=== PATIENT | female | born 1930 | race Caucasian/White ===

== ENCOUNTER 2017-03-24 10:06 | Inpatient (IN) | payer OTHER ==
[~2017-03-24] VITALS: Ht 160 cm; Wt 55.4 kg
[~2017-03-24 10:06] MED LIST: ASPI-496 PO; ATEN50TA41 PO; CHOL100011 PO; DONE5TAB7 PO; HALO1TAB PO; LOVA20TA2 PO; MV-M1TAB35 PO; POLY17PO5 PO; SULF1TAB24 PO; TRIA1CAP3 PO
[2017-03-24] MEDS ORDERED: PLEASE ENTER HEIGHT AND WEIGHT MC SCH (10:30)
[2017-03-24] MEDS ORDERED: ALBUTEROL/IPRATROPIUM 2.5MG/0.5MG, 3 ML NEB ONE (10:30)
[2017-03-24] MEDS ORDERED: SODIUM CHLORIDE 0.9% 1,000ML IVBOLUS ONE ×2 (10:30→14:00)
[2017-03-24 11:38] LABS: HEMATOCRIT 39.2 % (34.6-47.8); HEMOGLOBIN 13.4 g/dL (11.7-16.4); WHITE BLOOD COUNT 30.5 x10^3/uL (3.4-10)
[2017-03-24 11:40] LABS: DIFF TOTAL CELLS COUNTED 100 CELL DIFF
[2017-03-24 11:56] LABS: ASPARTATE AMINO TRANSFERASE 25 U/L (15-37); BLOOD UREA NITROGEN 11 mg/dL (7-18)
[2017-03-24 12:26] LABS: VERIFY COUNTS? YES
[2017-03-24] MEDS ORDERED: SODIUM CHLORIDE 0.9% 1,000 ML IV ONE (12:32)
[2017-03-24] MEDS ORDERED: CEFTRIAXONE PMX 1GM/50ML 50 ML ONE (12:37)
[2017-03-24] MEDS ORDERED: CEFTRIAXONE PMX 1GM/50ML 50 ML IV ONE (13:00)
[2017-03-24 13:55] VITALS: BP 133/72
[2017-03-24 14:45] VITALS: BP 138/74
[2017-03-24] MEDS ORDERED: ENALAPRILAT 1.25 MG/ML, 2ML IVPush PRN (15:30)
[2017-03-24] MEDS ORDERED: morphine SULFATE 10 MG/ML, 1ML IVPush PRN (15:30)
[2017-03-24] MEDS ORDERED: BISACODYL 10 MG SUPP PR PRN (15:30)
[2017-03-24] MEDS ORDERED: OXYcodone IR 5MG TABLET PO PRN (15:30)
[2017-03-24] MEDS ORDERED: ONDANSETRON 2MG/ML, 2ML IVPush PRN (15:30)
[2017-03-24] MEDS ORDERED: VANCOMYCIN PER PHARMACY MC PRN (15:30)
[2017-03-24] MEDS ORDERED: ACETAMINOPHEN 325 MG TABLET PO PRN (15:30)
[2017-03-24] MEDS ORDERED: POLYETHYLENE GLYCOL 17 GM PACKET PO PRN (15:30)
[2017-03-24] MEDS ORDERED: hydrALAzine 20 MG/ML, 1ML IVPush PRN (15:30)
[2017-03-24] MEDS ORDERED: PIPERACILLIN/TAZO/PMX 3.375GM 50 ML IV SCH (16:00)
[2017-03-24] MEDS ORDERED: VANCOMYCIN PMX 1GM/200ML 200 ML IV SCH ×2 (16:00→17:00)
[2017-03-24] MEDS ORDERED: PHARMACOKINETIC MONITORING MC PRN (16:00)
[2017-03-24] MEDS ORDERED: PHARMACOKINETIC CONSULTATION MC ONE (16:00)
[2017-03-24] MEDS: PIPERACILLIN/TAZO/PMX 3.375GM 50 ML IV SCH ×2 (16:42→22:40)
[2017-03-24] MEDS: HEPARIN 5,000 UNITS/ML, 1ML SQ SCH (16:47)
[2017-03-24] MEDS: D5%-0.9% NACL+KCL 20MEQ 1,000 ML IV SCH (17:22)
[2017-03-24 17:27] VITALS: BP 139/74
[2017-03-24] MEDS: TRIAMTERENE-HCTZ 37.5/25 MG TABLET PO SCH (17:58)
[2017-03-24 19:12] VITALS: BP 137/79
[2017-03-24] MEDS: LOVASTATIN 20 MG TABLET PO SCH (21:00)
[2017-03-25] MEDS: HEPARIN 5,000 UNITS/ML, 1ML SQ SCH ×3 (00:47→17:25)
[2017-03-25] MEDS: D5%-0.9% NACL+KCL 20MEQ 1,000 ML IV SCH ×2 (00:47→09:19)
[2017-03-25 01:20] VITALS: BP 155/67
[2017-03-25] MEDS: PIPERACILLIN/TAZO/PMX 3.375GM 50 ML IV SCH ×4 (04:17→22:27)
[2017-03-25 05:15] LABS: HEMATOCRIT 35.4 % (34.6-47.8); HEMOGLOBIN 12.3 g/dL (11.7-16.4); WHITE BLOOD COUNT 19.2 x10^3/uL (3.4-10)
[2017-03-25] MEDS: TRIAMTERENE-HCTZ 37.5/25 MG TABLET PO SCH ×2 (05:22→17:25)
[2017-03-25 05:23] LABS: BLOOD UREA NITROGEN 8 mg/dL (7-18)
[2017-03-25 05:28] LABS: ASPARTATE AMINO TRANSFERASE 27 U/L (15-37)
[2017-03-25 05:41] LABS: DIFF TOTAL CELLS COUNTED 100 CELL DIFF
[2017-03-25 05:42] LABS: VERIFY COUNTS? YES
[2017-03-25 06:55] VITALS: BP 145/70
[2017-03-25] MEDS: DONEPEZIL 5 MG TABLET PO SCH (09:00)
[2017-03-25] MEDS: ATENOLOL 50 MG TABLET PO SCH (09:00)
[2017-03-25] MEDS: POLYETHYLENE GLYCOL 17 GM PACKET PO SCH (09:00)
[2017-03-25] MEDS: ASPIRIN 81 MG TABLET EC PO SCH (09:00)
[2017-03-25] MEDS: SENNA/DOCUSATE TABLET PO SCH (09:23)
[2017-03-25] MEDS: CHOLECALCIFEROL 1,000 UNIT TABLET PO SCH (09:23)
[2017-03-25] MEDS ORDERED: POTASSIUM CHLORIDE 40 MEQ in SODIUM CHLORIDE 0.9% 500 ML IV ONE (09:30)
[2017-03-25] MEDS ORDERED: OMNIPAQUE 350 MG/ML, 100ML BOTTLE ONE (11:50)
[2017-03-25 13:45] VITALS: BP 100/63
[2017-03-25 13:50] VITALS: BP 109/66
[2017-03-25] MEDS: VANCOMYCIN PMX 1GM/200ML 200 ML IV SCH (17:25)
[2017-03-25 20:10] VITALS: BP 139/69
[2017-03-25] MEDS: LOVASTATIN 20 MG TABLET PO SCH (21:00)
[2017-03-26 01:02] VITALS: BP 136/75
[2017-03-26] MEDS: HEPARIN 5,000 UNITS/ML, 1ML SQ SCH ×3 (02:44→16:27)
[2017-03-26] MEDS: PIPERACILLIN/TAZO/PMX 3.375GM 50 ML IV SCH ×4 (04:15→22:01)
[2017-03-26 06:05] LABS: HEMATOCRIT 32.1 % (34.6-47.8); HEMOGLOBIN 11.1 g/dL (11.7-16.4); WHITE BLOOD COUNT 17.2 x10^3/uL (3.4-10)
[2017-03-26] MEDS: TRIAMTERENE-HCTZ 37.5/25 MG TABLET PO SCH ×2 (06:32→17:37)
[2017-03-26 06:41] LABS: BLOOD UREA NITROGEN 7 mg/dL (7-18)
[2017-03-26 07:45] VITALS: BP 133/69
[2017-03-26] MEDS: DONEPEZIL 5 MG TABLET PO SCH (09:00)
[2017-03-26] MEDS: SENNA/DOCUSATE TABLET PO SCH (09:00)
[2017-03-26] MEDS: CHOLECALCIFEROL 1,000 UNIT TABLET PO SCH (09:00)
[2017-03-26] MEDS: ATENOLOL 50 MG TABLET PO SCH (09:00)
[2017-03-26] MEDS: ASPIRIN 81 MG TABLET EC PO SCH (09:00)
[2017-03-26] MEDS: POLYETHYLENE GLYCOL 17 GM PACKET PO SCH (09:00)
[2017-03-26] MEDS ORDERED: MAGNESIUM SULFATE PMX 2GM/50ML 50 ML IV ONE (13:00)
[2017-03-26] MEDS: GUAIFENESIN 200 MG TABLET PO SCH ×2 (13:00→21:00)
[2017-03-26] MEDS ORDERED: POTASSIUM CHLORIDE 40 MEQ in SODIUM CHLORIDE 0.9% 500 ML IV ONE (13:00)
[2017-03-26 14:00] VITALS: BP 128/64
[2017-03-26 19:32] VITALS: BP 152/79
[2017-03-26] MEDS: LOVASTATIN 20 MG TABLET PO SCH (21:00)
[2017-03-27 02:03] VITALS: BP 135/78
[2017-03-27] MEDS: HEPARIN 5,000 UNITS/ML, 1ML SQ SCH ×3 (02:04→16:10)
[2017-03-27] MEDS: PIPERACILLIN/TAZO/PMX 3.375GM 50 ML IV SCH ×4 (04:20→22:03)
[2017-03-27] MEDS: VANCOMYCIN PMX 1GM/200ML 200 ML IV SCH (05:20)
[2017-03-27] MEDS: TRIAMTERENE-HCTZ 37.5/25 MG TABLET PO SCH ×2 (05:38→17:01)
[2017-03-27 05:42] LABS: HEMATOCRIT 30.9 % (34.6-47.8); HEMOGLOBIN 10.5 g/dL (11.7-16.4); WHITE BLOOD COUNT 10.1 x10^3/uL (3.4-10)
[2017-03-27 05:51] LABS: BLOOD UREA NITROGEN 13 mg/dL (7-18)
[2017-03-27] MEDS: CHOLECALCIFEROL 1,000 UNIT TABLET PO SCH (09:00)
[2017-03-27] MEDS: ATENOLOL 50 MG TABLET PO SCH (09:00)
[2017-03-27] MEDS: DONEPEZIL 5 MG TABLET PO SCH (09:32)
[2017-03-27] MEDS: SENNA/DOCUSATE TABLET PO SCH (09:33)
[2017-03-27] MEDS: POLYETHYLENE GLYCOL 17 GM PACKET PO SCH (09:33)
[2017-03-27] MEDS: GUAIFENESIN 200 MG TABLET PO SCH ×2 (09:33→20:40)
[2017-03-27] MEDS: ASPIRIN 81 MG TABLET EC PO SCH (09:33)
[2017-03-27] MEDS ORDERED: VANCOMYCIN PMX 1GM/200ML 200 ML IV SCH ×2 (11:30→13:00)
[2017-03-27 12:20] VITALS: BP 149/65
[2017-03-27 20:13] VITALS: BP 144/76
[2017-03-27] MEDS: LOVASTATIN 20 MG TABLET PO SCH (20:40)
[2017-03-28 00:24] VITALS: BP 133/77
[2017-03-28] MEDS: HEPARIN 5,000 UNITS/ML, 1ML SQ SCH ×3 (01:00→16:11)
[2017-03-28] MEDS: PIPERACILLIN/TAZO/PMX 3.375GM 50 ML IV SCH ×4 (03:37→22:39)
[2017-03-28] MEDS: TRIAMTERENE-HCTZ 37.5/25 MG TABLET PO SCH ×2 (06:00→18:04)
[2017-03-28 08:00] VITALS: BP 153/91
[2017-03-28] MEDS: ATENOLOL 50 MG TABLET PO SCH (09:00)
[2017-03-28] MEDS: VANCOMYCIN PMX 1GM/200ML 200 ML IV SCH (09:00)
[2017-03-28] MEDS: POLYETHYLENE GLYCOL 17 GM PACKET PO SCH (09:00)
[2017-03-28] MEDS: CHOLECALCIFEROL 1,000 UNIT TABLET PO SCH (09:00)
[2017-03-28] MEDS: GUAIFENESIN 200 MG TABLET PO SCH ×2 (09:00→21:00)
[2017-03-28] MEDS: SENNA/DOCUSATE TABLET PO SCH (09:00)
[2017-03-28] MEDS: ASPIRIN 81 MG TABLET EC PO SCH (09:00)
[2017-03-28] MEDS: DONEPEZIL 5 MG TABLET PO SCH (09:00)
[2017-03-28 12:00] VITALS: BP 161/83
[2017-03-28 19:16] VITALS: BP 158/68
[2017-03-28] MEDS: LOVASTATIN 20 MG TABLET PO SCH (21:00)
[2017-03-29] MEDS: HEPARIN 5,000 UNITS/ML, 1ML SQ SCH ×3 (01:20→16:45)
[2017-03-29 04:10] VITALS: BP 159/76
[2017-03-29] MEDS: PIPERACILLIN/TAZO/PMX 3.375GM 50 ML IV SCH ×4 (04:35→22:53)
[2017-03-29 05:33] LABS: HEMATOCRIT 36.9 % (34.6-47.8); HEMOGLOBIN 12.6 g/dL (11.7-16.4); WHITE BLOOD COUNT 9.5 x10^3/uL (3.4-10)
[2017-03-29] MEDS: TRIAMTERENE-HCTZ 37.5/25 MG TABLET PO SCH (06:00)
[2017-03-29 06:22] LABS: BLOOD UREA NITROGEN 9 mg/dL (7-18)
[2017-03-29 07:00] VITALS: BP 154/70
[2017-03-29] MEDS ORDERED: POTASSIUM CHLORIDE 40 MEQ in SODIUM CHLORIDE 0.9% 500 ML IV ONE (07:00)
[2017-03-29] MEDS: DONEPEZIL 5 MG TABLET PO SCH (07:56)
[2017-03-29] MEDS: ASPIRIN 81 MG TABLET EC PO SCH (07:57)
[2017-03-29] MEDS: ATENOLOL 50 MG TABLET PO SCH (07:57)
[2017-03-29] MEDS: GUAIFENESIN 200 MG TABLET PO SCH ×2 (07:57→20:31)
[2017-03-29] MEDS: CHOLECALCIFEROL 1,000 UNIT TABLET PO SCH (07:57)
[2017-03-29] MEDS: SENNA/DOCUSATE TABLET PO SCH (07:57)
[2017-03-29] MEDS: POLYETHYLENE GLYCOL 17 GM PACKET PO SCH (07:57)
[2017-03-29] MEDS: VANCOMYCIN PMX 1GM/200ML 200 ML IV SCH (09:10)
[2017-03-29] MEDS ORDERED: MAGNESIUM SULFATE PMX 2GM/50ML 50 ML IV ONE (10:30)
[2017-03-29] MEDS: MAGNESIUM CHLORIDE 64 MG TABLET.DR PO SCH ×2 (10:54→20:50)
[2017-03-29] MEDS: D5%-0.45NACL+KCL 40MEQ 1,000 ML IV SCH (10:58)
[2017-03-29 13:29] VITALS: BP 147/77
[2017-03-29] MEDS: CARVEDILOL 6.25 MG TABLET PO SCH (16:57)
[2017-03-29 19:09] VITALS: BP 146/71
[2017-03-29] MEDS: LOVASTATIN 20 MG TABLET PO SCH (20:31)
[2017-03-29] MEDS: MIRTAZAPINE 15 MG TABLET PO SCH (20:31)
[2017-03-29] MEDS: LOSARTAN 25MG TABLET PO SCH (20:33)
[2017-03-30] MEDS: D5%-0.45NACL+KCL 40MEQ 1,000 ML IV SCH ×2 (00:16→11:40)
[2017-03-30] MEDS: HEPARIN 5,000 UNITS/ML, 1ML SQ SCH ×3 (01:53→17:45)
[2017-03-30 02:59] VITALS: BP 135/76
[2017-03-30] MEDS: PIPERACILLIN/TAZO/PMX 3.375GM 50 ML IV SCH ×3 (04:45→17:47)
[2017-03-30 05:29] LABS: BLOOD UREA NITROGEN 10 mg/dL (7-18)
[2017-03-30] MEDS: CARVEDILOL 6.25 MG TABLET PO SCH ×2 (06:00→17:44)
[2017-03-30] MEDS: POLYETHYLENE GLYCOL 17 GM PACKET PO SCH (10:24)
[2017-03-30] MEDS: ASPIRIN 81 MG TABLET EC PO SCH (10:24)
[2017-03-30] MEDS: SENNA/DOCUSATE TABLET PO SCH (10:24)
[2017-03-30] MEDS: MAGNESIUM CHLORIDE 64 MG TABLET.DR PO SCH ×2 (10:25→22:09)
[2017-03-30] MEDS: CHOLECALCIFEROL 1,000 UNIT TABLET PO SCH (10:25)
[2017-03-30] MEDS: LOSARTAN 25MG TABLET PO SCH ×2 (10:30→21:55)
[2017-03-30] MEDS: GUAIFENESIN 200 MG TABLET PO SCH ×2 (10:30→21:55)
[2017-03-30] MEDS: VANCOMYCIN PMX 1GM/200ML 200 ML IV SCH (10:30)
[2017-03-30] MEDS: DONEPEZIL 5 MG TABLET PO SCH (10:30)
[2017-03-30 14:12] VITALS: BP 154/70
[2017-03-30 20:34] VITALS: BP 119/61
[2017-03-30] MEDS: MIRTAZAPINE 15 MG TABLET PO SCH (21:55)
[2017-03-30] MEDS: LOVASTATIN 20 MG TABLET PO SCH (21:56)
[2017-03-31] MEDS: PIPERACILLIN/TAZO/PMX 3.375GM 50 ML IV SCH ×5 (00:22→20:33)
[2017-03-31] MEDS: HEPARIN 5,000 UNITS/ML, 1ML SQ SCH ×3 (02:39→17:29)
[2017-03-31 02:50] VITALS: BP 145/65
[2017-03-31] MEDS: CARVEDILOL 6.25 MG TABLET PO SCH ×2 (06:52→17:28)
[2017-03-31 07:06] VITALS: BP 154/71
[2017-03-31] MEDS: POLYETHYLENE GLYCOL 17 GM PACKET PO SCH (07:58)
[2017-03-31] MEDS: CHOLECALCIFEROL 1,000 UNIT TABLET PO SCH (07:58)
[2017-03-31] MEDS: LOSARTAN 25MG TABLET PO SCH ×2 (07:58→22:14)
[2017-03-31] MEDS: SENNA/DOCUSATE TABLET PO SCH (07:58)
[2017-03-31] MEDS: MAGNESIUM CHLORIDE 64 MG TABLET.DR PO SCH ×3 (07:58→22:13)
[2017-03-31] MEDS: ASPIRIN 81 MG TABLET EC PO SCH (07:58)
[2017-03-31] MEDS: DONEPEZIL 5 MG TABLET PO SCH (07:58)
[2017-03-31] MEDS: GUAIFENESIN 200 MG TABLET PO SCH ×2 (07:58→22:14)
[2017-03-31] MEDS: VANCOMYCIN PMX 1GM/200ML 200 ML IV SCH (10:11)
[2017-03-31 13:10] VITALS: BP 147/61
[2017-03-31 19:44] VITALS: BP 145/71
[2017-03-31] MEDS: MIRTAZAPINE 15 MG TABLET PO SCH (22:14)
[2017-03-31] MEDS: LOVASTATIN 20 MG TABLET PO SCH (22:14)
[2017-04-01] MEDS: PIPERACILLIN/TAZO/PMX 3.375GM 50 ML IV SCH ×4 (01:50→19:46)
[2017-04-01 02:07] VITALS: BP 152/80
[2017-04-01] MEDS: HEPARIN 5,000 UNITS/ML, 1ML SQ SCH ×3 (03:41→19:46)
[2017-04-01] MEDS: CARVEDILOL 6.25 MG TABLET PO SCH ×2 (05:43→18:39)
[2017-04-01 08:09] VITALS: BP 156/78
[2017-04-01] MEDS: CHOLECALCIFEROL 1,000 UNIT TABLET PO SCH (10:23)
[2017-04-01] MEDS: GUAIFENESIN 200 MG TABLET PO SCH ×2 (10:23→21:17)
[2017-04-01] MEDS: DONEPEZIL 5 MG TABLET PO SCH (10:24)
[2017-04-01] MEDS: LOSARTAN 25MG TABLET PO SCH ×2 (10:25→21:16)
[2017-04-01] MEDS: POLYETHYLENE GLYCOL 17 GM PACKET PO SCH (10:25)
[2017-04-01] MEDS: MAGNESIUM CHLORIDE 64 MG TABLET.DR PO SCH ×2 (10:25→21:17)
[2017-04-01] MEDS: SENNA/DOCUSATE TABLET PO SCH (10:25)
[2017-04-01] MEDS: VANCOMYCIN PMX 1GM/200ML 200 ML IV SCH (11:21)
[2017-04-01 13:33] VITALS: BP 177/75
[2017-04-01 18:40] VITALS: BP 142/72
[2017-04-01 20:00] VITALS: BP 152/78
[2017-04-01] MEDS: LOVASTATIN 20 MG TABLET PO SCH (21:00)
[2017-04-01] MEDS: MIRTAZAPINE 15 MG TABLET PO SCH (21:16)
[2017-04-02] MEDS: PIPERACILLIN/TAZO/PMX 3.375GM 50 ML IV SCH ×3 (02:19→14:06)
[2017-04-02] MEDS: HEPARIN 5,000 UNITS/ML, 1ML SQ SCH ×2 (03:35→12:52)
[2017-04-02 03:38] VITALS: BP_SYST 172; BP_SYST 182; BP_DIAS 62; BP_DIAS 88
[2017-04-02] MEDS: CARVEDILOL 6.25 MG TABLET PO SCH (05:15)
[2017-04-02 05:20] VITALS: BP 155/84
[2017-04-02 07:12] VITALS: BP_SYST 170; BP_SYST 181; BP_DIAS 75; BP_DIAS 79
[2017-04-02 07:30] VITALS: BP 137/63
[2017-04-02] MEDS: DONEPEZIL 5 MG TABLET PO SCH (08:26)
[2017-04-02] MEDS: POLYETHYLENE GLYCOL 17 GM PACKET PO SCH (08:27)
[2017-04-02] MEDS: LOSARTAN 25MG TABLET PO SCH (08:27)
[2017-04-02] MEDS: GUAIFENESIN 200 MG TABLET PO SCH (08:28)
[2017-04-02] MEDS: CHOLECALCIFEROL 1,000 UNIT TABLET PO SCH (08:28)
[2017-04-02] MEDS: SENNA/DOCUSATE TABLET PO SCH (08:29)
[2017-04-02] MEDS ORDERED: ASPIRIN 81 MG TABLET CHEW PO SCH (09:00)
[2017-04-02 11:05] LABS: BLOOD UREA NITROGEN 7 mg/dL (7-18)
[2017-04-02] MEDS ORDERED: SENN1TAB7 PO (14:21)
[2017-04-02] MEDS ORDERED: GUAI200T3 PO (14:21)
[2017-04-02] MEDS ORDERED: LOSA25TA2 PO (14:21)
[2017-04-02] MEDS ORDERED: CARV6.2512 PO (14:21)
[2017-04-02] MEDS ORDERED: MIRT15TA4 PO (14:21)
[2017-04-02] MEDS ORDERED: OXYC5TAB3 PO (14:21)
[2017-04-02] MEDS ORDERED: POTASSIUM CHLORIDE 40 MEQ in SODIUM CHLORIDE 0.9% 500 ML IV ONE (14:30)
[2017-04-02] MEDS ORDERED: MULT-750 PO (14:33)
[2017-04-02] MEDS ORDERED: AMOX1TAB64 PO (14:33)
[2017-04-02 14:57] VITALS: BP 145/78
[2017-04-02] MEDS ORDERED: VANCOMYCIN PMX 1GM/200ML 200 ML IV SCH (17:00)
[2017-04-02] MEDS ORDERED: PIPERACILLIN/TAZO 3.375 GM in SODIUM CHLORIDE 0.9% 50 ML IV SCH (20:00)
[2017-04-02] MEDS ORDERED: LOSARTAN 25MG TABLET PO SCH (21:00)
== END 2017-04-02 17:50 | disposition home or self-care (01) | DRG 871 ==
LOC: ED 11:19 → EDIP 12:32 → 4NOR 13:41
PROVIDERS: ADMIT Hospitalist; ATTEND Hospitalist
PROC: 0T9B70Z Drainage of Bladder with Drainage Device, Via Natural or Artificial Opening (ICD-10-PCS; principal; 2017-03-24)
DX: A41.9 Sepsis, unspecified organism (principal); G93.41 Metabolic encephalopathy; E43 Unspecified severe protein-calorie malnutrition; R65.21 Severe sepsis with septic shock; T17.890A Other foreign object in other parts of respiratory tract causing asphyxiation, initial encounter; E87.2 Acidosis; J18.9 Pneumonia, unspecified organism; N39.0 Urinary tract infection, site not specified; F03.90 Unspecified dementia, unspecified severity, without behavioral disturbance, psychotic disturbance, mood disturbance, and anxiety; J98.11 Atelectasis; Z68.21 Body mass index [BMI] 21.0-21.9, adult; B96.1 Klebsiella pneumoniae [K. pneumoniae] as the cause of diseases classified elsewhere; E78.00 Pure hypercholesterolemia, unspecified; E78.5 Hyperlipidemia, unspecified; E83.51 Hypocalcemia; E87.6 Hypokalemia; I10 Essential (primary) hypertension; Z87.891 Personal history of nicotine dependence
CPT/HCPCS: 36415; 71010; 71275; 80048; 80053; 80061; 80202; 81001; 82306; 82607; 83036; 83605; 83735; 84100; 84145; 84439; 84443; 85025; 85610; 87040; 87077; 87086; 87186; 87324; 93005; 94640; 96361; 96365; J0696; J1644; J2543; J3370; J3480; Q9967; J3475; J7030; J7040